=== PATIENT | male | born 1975 | race American Indian/Alaskan Native ===

== ENCOUNTER 2016-03-29 11:59 | Emergency (ER) | payer MEDICARE ==
[2016-03-29 13:40] VITALS: BP 149/104
--- NOTE | 2016-03-29 16:46 | Emergency Department Report ---
ED ENT HPI - General Chief complaint: Skin/Abscess/Foreign Body Stated complaint: LEFT EAR AND RECTAL BONE PAIN Time Seen by Provider: 03/29/16 16:32 Source: patient Mode of arrival: Ambulatory Limitations: No Limitations - History of Present Illness Initial comments: 40-year-old male presents with complaint of 2 weeks of right buttock pain feels sharp or swollen walking and squatting. 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 Denies any direct trauma no fever no chills no bladder or bowel incontinence. Denies any paresthesias but does state the pain feels sharp and occasionally radiates down lateral aspect of right leg when he stands for prolonged periods of time. Denies any paralysis symptoms. Also complaining of one-week of irritation and pain to left external ear. Denies any recent piercing was no recent trauma. - Related Data Previous Rx's Medication Instructions Recorded Last Taken Type Ibuprofen [Motrin] 800 mg PO TID PRN #30 tablet 12/19/12 Unknown Rx Amoxicillin [Trimox CAP] 500 mg PO BID #20 capsule 08/27/14 Unknown Rx Fluticasone [Flonase] 1 spray NS QDAY #1 bottle 08/27/14 Unknown Rx Ibuprofen [Motrin 800 MG tab] 800 mg PO Q8HR PRN #30 tablet 08/27/14 Unknown Rx guaiFENesin DM [Robitussin Dm] 10 ml PO Q6HR #1 bottle 08/27/14 Unknown Rx Acetaminophen/Codeine [Tylenol #3] 1 tab PO Q6H PRN #20 tab 06/23/15 Unknown Rx Metaxalone [Skelaxin] 800 mg PO TID PRN #15 tablet 06/23/15 Unknown Rx Ciprofloxacin HCl [Ciprofloxacin 500 mg PO Q12H #14 tab 03/29/16 Unknown Rx TAB] Mupirocin [Bactroban 2% CREAM] 1 applicatio TP TID #1 cream 03/29/16 Unknown Rx Naproxen [Naprosyn TAB] 500 mg PO BID PRN #20 tablet 03/29/16 Unknown Rx Allergies Allergy/AdvReac Type Severity Reaction Status Date / Time No Known Allergies Allergy Verified 06/23/15 14:10 ED Dental HPI - General Chief complaint: Skin/Abscess/Foreign Body Stated complaint: LEFT EAR AND RECTAL BONE PAIN Time Seen by Provider: 03/29/16 16:32 Source: patient Mode of arrival: Ambulatory Limitations: No Limitations - Related Data Previous Rx's Medication Instructions Recorded Last Taken Type Ibuprofen [Motrin] 800 mg PO TID PRN #30 tablet 12/19/12 Unknown Rx Amoxicillin [Trimox CAP] 500 mg PO BID #20 capsule 08/27/14 Unknown Rx Fluticasone [Flonase] 1 spray NS QDAY #1 bottle 08/27/14 Unknown Rx Ibuprofen [Motrin 800 MG tab] 800 mg PO Q8HR PRN #30 tablet 08/27/14 Unknown Rx guaiFENesin DM [Robitussin Dm] 10 ml PO Q6HR #1 bottle 08/27/14 Unknown Rx Acetaminophen/Codeine [Tylenol #3] 1 tab PO Q6H PRN #20 tab 06/23/15 Unknown Rx Metaxalone [Skelaxin] 800 mg PO TID PRN #15 tablet 06/23/15 Unknown Rx Ciprofloxacin HCl [Ciprofloxacin 500 mg PO Q12H #14 tab 03/29/16 Unknown Rx TAB] Mupirocin [Bactroban 2% CREAM] 1 applicatio TP TID #1 cream 03/29/16 Unknown Rx Naproxen [Naprosyn TAB] 500 mg PO BID PRN #20 tablet 03/29/16 Unknown Rx Allergies Allergy/AdvReac Type Severity Reaction Status Date / Time No Known Allergies Allergy Verified 06/23/15 14:10 ED Review of Systems ROS: Stated complaint: LEFT EAR AND RECTAL BONE PAIN Other details as noted in HPI ED Past Medical Hx - Surgical History Additional Surgical History: PE tubes. tonsilectomy. surgery to right middle digit - Social History Smoking Status: Current Every Day Smoker Substance Use Type: Alcohol - Medications Home Medications: Home Medications Medication Instructions Recorded Confirmed Last Taken Type Ibuprofen [Motrin] 800 mg PO TID PRN #30 tablet 12/19/12 Unknown Rx Amoxicillin [Trimox CAP] 500 mg PO BID #20 capsule 08/27/14 Unknown Rx Fluticasone [Flonase] 1 spray NS QDAY #1 bottle 08/27/14 Unknown Rx Ibuprofen [Motrin 800 MG tab] 800 mg PO Q8HR PRN #30 tablet 08/27/14 Unknown Rx guaiFENesin DM [Robitussin Dm] 10 ml PO Q6HR #1 bottle 08/27/14 Unknown Rx Acetaminophen/Codeine [Tylenol #3] 1 tab PO Q6H PRN #20 tab 06/23/15 Unknown Rx Metaxalone [Skelaxin] 800 mg PO TID PRN #15 tablet 06/23/15 Unknown Rx Ciprofloxacin HCl [Ciprofloxacin 500 mg PO Q12H #14 tab 03/29/16 Unknown Rx TAB] Mupirocin [Bactroban 2% CREAM] 1 applicatio TP TID #1 cream 03/29/16 Unknown Rx Naproxen [Naprosyn TAB] 500 mg PO BID PRN #20 tablet 03/29/16 Unknown Rx ED Physical Exam - General Limitations: No Limitations General appearance: alert, in no apparent distress - Head Head exam: Present: atraumatic, normocephalic - Eye Eye exam: Present: normal appearance, PERRL, EOMI - ENT ENT exam: Present: mucous membranes moist - Expanded ENT Exam Expanded 1 - Small amount of left-sided tragus inflammation and cellulitis and no palpable fluctuance and no involvement of the inferior canal Mouth exam: Present: normal external inspection Teeth exam: Present: normal inspection Throat exam: Positive: normal inspection - Neck Neck exam: Present: normal inspection - Respiratory Respiratory exam: Present: normal lung sounds bilaterally. Absent: respiratory distress - Cardiovascular Cardiovascular Exam: Present: regular rate, normal rhythm. Absent: systolic murmur, diastolic murmur, rubs, gallop - GI/Abdominal GI/Abdominal exam: Present: soft, normal bowel sounds - Rectal Rectal exam: Present: deferred - Extremities Exam Extremities exam: Present: normal inspection - Back Exam Back exam: Present: normal inspection, full ROM - Neurological Exam Neurological exam: Present: alert, oriented X3, CN II-XII intact, normal gait, other (straight leg raise test positive right side at 45, normal rectal tone) - Psychiatric Psychiatric exam: Present: normal affect, normal mood - Skin Skin exam: Present: warm, dry, intact, normal color. Absent: rash ED Course Vital Signs 03/29/16 13:36 Temperature 98.3 F Pulse Rate 90 Respiratory 16 Rate Blood Pressure 149/104 O2 Sat by Pulse 97 Oximetry ED Medical Decision Making - Medical Decision Making A/P: Sciatica/piriformis syndrome, external otitis/tragus infection left ear 1-clinical symptoms patient is reporting pain in his right buttock worse with walking consistent with sciatica or piriformis syndrome no signs of infection or direct trauma no buttock abscess. 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 Naproxen 500 mg when necessary 2- patient has slight external infection of left tragus as per up-to-date recommendations will treat empirically with PO ciprofloxacin and topical mupirocin [email or web address]=search_ result&search=otitis%20externa&[email or web address]~81#[id number] http://www.aafp.org/afp/2011/1201/p1055.html 3-will give patient primary care referral. I advised patient to return to the ED if external ear infection worsens if he develops any pain in her ear or any pus drainage from ear Critical care attestation.: If time is entered above; I have spent that time in minutes in the direct care of this critically ill patient, excluding procedure time. ED Disposition Clinical Impression: Sciatica of right side, Cellulitis of tragus of left ear Disposition: DISCHARGED TO HOME OR SELFCARE Is pt being admited?: No Does the pt Need Aspirin: No Condition: Stable Instructions: Sciatica (ED), Cellulitis (ED) Prescriptions: Ciprofloxacin HCl [Ciprofloxacin TAB] 500 mg PO Q12H #14 tab Mupirocin [Bactroban 2% CREAM] 1 applicatio TP TID #1 cream Naproxen [Naprosyn TAB] 500 mg PO BID PRN #20 tablet PRN Reason: Pain Referrals: PRIMARY CAREMD [Primary Care Provider] - 3-5 Days WENDI MCKAY MD [Staff Physician] - 3-5 Days [facility] [Outside] - 3-5 Days Forms: Work/School Release Form(ED) Time of Disposition: 16:47
== END 2016-03-29 17:05 | disposition home or self-care (01) ==
LOC: ED 11:59
DX: H60.12 Cellulitis of left external ear (principal); M54.31 Sciatica, right side; F17.200 Nicotine dependence, unspecified, uncomplicated; Z90.89 Acquired absence of other organs
CPT/HCPCS: 99282

== ENCOUNTER 2016-08-23 10:21 | Emergency (ER) | payer MEDICAID, MEDICARE ==
[2016-08-23 10:45] VITALS: BP 134/93
[2016-08-23] MEDS ORDERED: BOOSTRIX IM ONE (13:09)
[2016-08-23] MEDS ORDERED: AUGMENTIN 875 MG PO ONE (13:09)
[2016-08-23] MEDS ORDERED: MOTRIN PO ONE (13:09)
--- NOTE | 2016-08-23 14:07 | XRay Report ---
Left tibia-fibula 2 views: History: Dogbite. Findings: No bony abnormality. No fracture dislocation or lytic lesion. No soft tissue calcification Impression: No evidence of acute fracture.
[2016-08-23] MEDS ORDERED: TRIPLE ANTIBIOTIC TP ONE (14:18)
--- NOTE | 2016-08-23 14:24 | Emergency Department Report ---
Entered by JEIMY ALEGRIA, acting as scribe for ERIKA MILLRE NP. ED Animal Bite HPI - General Chief Complaint: Animal Bite Stated Complaint: DOG BITE Time Seen by Provider: 08/23/16 12:58 Source: patient Mode of arrival: Ambulatory Limitations: No Limitations - History of Present Illness Initial Comments: 40 year old male with no significant PMHx presents to the ED with c/o a dog bite that occurred yesterday around 1999. PT states he was working in his cousin's yard, in [place]. Patient reports he was picking up trash around the dog house and the dog struck him. He is unaware on the breed of the dog but he recalls it to be a black dog. Patient rates his pain 5/10 severity and describes as throbbing. Patient reports mild pain while ambulating but denies fever, chills, SOB, chest pain, numbness, and tingling. Patient states the dog is UTD with shots but unsure if he is UTD with tetanus. Pt's states his cousin's cleaned the bite with alcohol and then wrapped the bite. PT also reports ant bites to lavell MARIE Complaint: animal bite (dog bite) Onset/Timin (around 1999) -: days(s) Location: other (left lower extremity) Left: Leg (Lower extremity) Animal: dog (black dog) Animal Control Notified: No Description: household pet (Cousin's dog) Mechanism: bite Pain Description: other (throbbing) Severity scale (0 -10): 5 Context: unprovoked (picking up trash around the dog house) Associated Symptoms: bleeding. denies: erythema, discharge from wound, fever, chills, rash, loss of consciousness, cough, headache, diaphoresis, shortness of breath Treatments Prior to Arrival: other (wrapped up towel) - Related Data Patient Tetanus UTD: No (Doesn't recall) Previous Rx's Medication Instructions Recorded Last Taken Type Amoxicillin/K Clav Tab [Augmentin 1 tab PO Q12HR #14 tab 08/23/16 Unknown Rx 875 mg] Hydrocortisone 1% [Hydrocortisone 1 applicatio TP TID PRN #1 tube 08/23/16 Unknown Rx 1% CREAM] Ibuprofen [Motrin] 600 mg PO Q8H PRN #15 tablet 08/23/16 Unknown Rx Mupirocin [Bactroban 2%] 1 applic TP TID 5 Days 08/23/16 Unknown Rx Allergies Allergy/AdvReac Type Severity Reaction Status Date / Time No Known Allergies Allergy Verified 06/23/15 14:10 ED Review of Systems Comment: All other systems reviewed and negative Constitutional: denies: chills, fever ENT: denies: ear pain, throat pain Respiratory: denies: cough, shortness of breath, wheezing Cardiovascular: denies: chest pain, palpitations Gastrointestinal: denies: abdominal pain, nausea, diarrhea Skin: rash (ant bites to bue ), other (three puncture wound to LLE ). denies: lesions Neurological: denies: headache, weakness, paresthesias, abnormal gait ED Past Medical Hx - Past Medical History Previous Medical History?: No - Surgical History Past Surgical History?: Yes Additional Surgical History: PE tubes. tonsilectomy. surgery to right middle digit - Social History Smoking Status: Current Every Day Smoker Substance Use Type: Alcohol - Medications Home Medications: Home Medications Medication Instructions Recorded Confirmed Last Taken Type Amoxicillin/K Clav Tab [Augmentin 1 tab PO Q12HR #14 tab 08/23/16 Unknown Rx 875 mg] Hydrocortisone 1% [Hydrocortisone 1 applicatio TP TID PRN #1 tube 08/23/16 Unknown Rx 1% CREAM] Ibuprofen [Motrin] 600 mg PO Q8H PRN #15 tablet 08/23/16 Unknown Rx Mupirocin [Bactroban 2%] 1 applic TP TID 5 Days 08/23/16 Unknown Rx ED Physical Exam - General Limitations: No Limitations General appearance: alert, in no apparent distress - Head Head exam: Present: atraumatic, normocephalic - Eye Eye exam: Present: normal appearance, PERRL, EOMI. Absent: conjunctival injection - ENT ENT exam: Present: mucous membranes moist - Expanded ENT Exam Expanded Ear exam: Present: other (abrasion to R ear canal, abrasion to L tragus) TM/Canal exam: Loss of Landmarks: Right TM Mouth exam: Present: normal external inspection. Absent: drooling, trismus - Neck Neck exam: Present: normal inspection, full ROM - Respiratory Respiratory exam: Present: normal lung sounds bilaterally. Absent: respiratory distress, chest wall tenderness - Cardiovascular Cardiovascular Exam: Present: regular rate, normal rhythm, normal heart sounds - GI/Abdominal GI/Abdominal exam: Present: soft. Absent: tenderness - Extremities Exam Extremities exam: Present: full ROM, tenderness. Absent: pedal edema, joint swelling, calf tenderness - Expanded Lower Extremity Exam Left Knee exam: Present: normal inspection, full ROM. Absent: tenderness Lower Leg exam: Present: tenderness, swelling (trace swelling noed ). Absent: normal inspection (3 puncture wounds to lle, no drainage, no active bleeding ), ecchymosis, erythema (no warmth) Ankle exam: Present: normal inspection, full ROM. Absent: tenderness, swelling Foot/Toe exam: Present: normal inspection, full ROM. Absent: tenderness, subungual hematoma Neuro vascular tendon exam: Present: no vascular compromise Gait: Positive: observed and normal - Back Exam Back exam: Present: normal inspection, full ROM. Absent: tenderness, CVA tenderness (R), CVA tenderness (L) - Neurological Exam Neurological exam: Present: alert, oriented X3, normal gait - Psychiatric Psychiatric exam: Present: normal affect, normal mood - Skin Skin exam: Present: warm, dry, normal color, other (bug bites to bue ). Absent : intact, erythema ED Course Vital Signs 08/23/16 10:40 Temperature 98.0 F Pulse Rate 103 H Respiratory 18 Rate Blood Pressure 134/93 O2 Sat by Pulse 96 Oximetry - Reevaluation(s) Reevaluation #1: 08/23/16 14:14 PT's TD vaccine has been updated. PT states the dog has been vaccinated against Rabies. [employer] has been notified of bite. - Pulse Oximetry Interpretation Digit-Finger Initial Pulse Oximetry Readin Actions Taken: none Critical Care Time: No ED Disposition Clinical Impression: Need for Tdap vaccination Dog bite of left lower leg Qualifiers: Encounter type: initial encounter Qualified Code(s): S81.852A - Open bite, left lower leg, initial encounter Insect bite Qualifiers: Encounter type: initial encounter Qualified Code(s): W57.XXXA - Bitten or stung by nonvenomous insect and other nonvenomous arthropods, initial encounter Abrasion of left pinna Qualifiers: Encounter type: initial encounter Qualified Code(s): S00.412A - Abrasion of left ear, initial encounter Disposition: DC-01 TO HOME OR SELFCARE Is pt being admited?: No Does the pt Need Aspirin: No Condition: Stable Instructions: Animal Bite (ED) Additional Instructions: Return to the ED if your leg swells, turns red, has drainage, or you develop a fever or if it becomes more painful follow up with animal control Do not scratch your bug bites finish all antibiotics do not scratch your ear canals with your finger Follow up with PCP in 3-5 days and have your BP rechecked at your follow up Prescriptions: Amoxicillin/K Clav Tab [Augmentin 875 mg] 1 tab PO Q12HR #14 tab Hydrocortisone 1% [Hydrocortisone 1% CREAM] 1 applicatio TP TID PRN #1 tube PRN Reason: Itching Ibuprofen [Motrin] 600 mg PO Q8H PRN #15 tablet PRN Reason: Pain Mupirocin [Bactroban 2%] 1 applic TP TID 5 Days Referrals: [facility] [Outside] - 3-5 Days NILAM MURRAY MD [Referring] - 3-5 Days PRIMARY CAREMD [Primary Care Provider] - 3-5 Days Forms: Work/School Release Form(ED) Time of Disposition: 14:20 This documentation as recorded by the RAJI hernandez PEARL,accurately reflects the service I personally performed and the decisions made by ,ERIKA MILLER NP.
== END 2016-08-23 14:43 | disposition home or self-care (01) ==
LOC: ED 10:21
DX: S81.852A Open bite, left lower leg, initial encounter (principal); S00.412A Abrasion of left ear, initial encounter; F17.200 Nicotine dependence, unspecified, uncomplicated; W54.0XXA Bitten by dog, initial encounter; Y93.89 Activity, other specified; Y99.8 Other external cause status; Y92.89 Other specified places as the place of occurrence of the external cause
CPT/HCPCS: 90471; 90715; A6250

== ENCOUNTER 2019-07-18 08:51 | Emergency (ER) | payer MEDICARE ==
[2019-07-18 09:50] LABS: Hematocrit 41.2 % (35.5-45.6); Hemoglobin 13.2 gm/dl (11.8-15.2); Mean Corpuscular HGB Conc 32 % (32-34); Mean Corpuscular Volume 89 fl (84-94); Platelet Count 209 K/mm3 (140-440); Red Blood Count 4.63 M/mm3 (3.65-5.03)
[2019-07-18 10:07] LABS: Alanine Aminotransferase 14 units/L (7-56); Albumin 4.2 g/dL (3.9-5); BUN/Creatinine Ratio 10; Blood Urea Nitrogen 9 mg/dL (9-20); Calcium 8.8 mg/dL (8.4-10.2); Hemolysis Index 8
--- NOTE | 2019-07-18 10:48 | Emergency Department Report ---
- General Chief Complaint: GI Bleed Stated Complaint: SPITTING UP BLOOD Time Seen by Provider: 07/18/19 10:31 Source: patient Mode of arrival: Ambulatory Limitations: No Limitations - History of Present Illness Initial Comments: 43-year-old male with history of hypertension presents to ED with an episode of hemoptysis. Patient states on yesterday at around 8 PM, he coughed. Patient states he had blood-streaked sputum. Patient states he coughed right after that and brought up clear sputum. Patient states this was his only episode of coughing. States he has not had any coughing today, did not have any coughing the day prior. Patient denies fever, sore throat, body aches, shortness of breath, leg pain or swelling, vomiting or diarrhea, loss of smell or taste, or known exposure to anyone who has tested positive for COVID-19. Patient admits to tobacco and alcohol use. Patient also concerned about a swelling on his anterior lower right rib cage. Denies pain. MD Complaint: cough -: Last night Severity: mild Consistency: now resolved Improves With: nothing Worsens With: nothing Associated Symptoms: denies: fever, chills, myalgias, nasal congestion, sore throat, chest pain, shortness of breath, nausea, vomiting, diarrhea - Related Data Previous Rx's Medication Instructions Recorded Last Taken Type Amoxicillin/K Clav Tab [Augmentin 1 tab PO Q12HR #14 tab 08/23/16 Unknown Rx 875 mg] Hydrocortisone 1% [Hydrocortisone 1 applicatio TP TID PRN #1 tube 08/23/16 Unknown Rx 1% CREAM] Ibuprofen [Motrin] 600 mg PO Q8H PRN #15 tablet 08/23/16 Unknown Rx Mupirocin [Bactroban 2%] 1 applic TP TID 5 Days tube 08/23/16 Unknown Rx hydroCHLOROthiazide [HCTZ] 25 mg PO QDAY #30 tablet 07/18/19 Unknown Rx Allergies Allergy/AdvReac Type Severity Reaction Status Date / Time No Known Allergies Allergy Verified 07/18/19 08:52 ED Review of Systems ROS: Stated complaint: SPITTING UP BLOOD Other details as noted in HPI Comment: All other systems reviewed and negative Constitutional: denies: chills, fever ENT: denies: throat pain, congestion Respiratory: cough. denies: shortness of breath Cardiovascular: denies: chest pain Gastrointestinal: denies: vomiting, diarrhea Musculoskeletal: other (denies leg pain or swelling) ED Past Medical Hx - Past Medical History Previous Medical History?: No - Surgical History Additional Surgical History: PE tubes. tonsilectomy. surgery to right middle digit - Social History Smoking Status: Current Every Day Smoker Substance Use Type: Marijuana - Medications Home Medications: Home Medications Medication Instructions Recorded Confirmed Last Taken Type Amoxicillin/K Clav Tab [Augmentin 1 tab PO Q12HR #14 tab 08/23/16 Unknown Rx 875 mg] Hydrocortisone 1% [Hydrocortisone 1 applicatio TP TID PRN #1 tube 08/23/16 Unknown Rx 1% CREAM] Ibuprofen [Motrin] 600 mg PO Q8H PRN #15 tablet 08/23/16 Unknown Rx Mupirocin [Bactroban 2%] 1 applic TP TID 5 Days tube 08/23/16 Unknown Rx hydroCHLOROthiazide [HCTZ] 25 mg PO QDAY #30 tablet 07/18/19 Unknown Rx ED Physical Exam - General Limitations: No Limitations General appearance: alert, in no apparent distress - Head Head exam: Present: atraumatic, normocephalic - Eye Eye exam: Present: normal appearance, EOMI - ENT ENT exam: Present: mucous membranes moist - Neck Neck exam: Present: normal inspection - Respiratory Respiratory exam: Present: normal lung sounds bilaterally. Absent: respiratory distress - Cardiovascular Cardiovascular Exam: Present: regular rate, normal rhythm - GI/Abdominal GI/Abdominal exam: Present: soft. Absent: distended, tenderness - Extremities Exam Extremities exam: Present: normal inspection. Absent: pedal edema, calf tenderness - Neurological Exam Neurological exam: Present: alert, oriented X3 - Psychiatric Psychiatric exam: Present: normal affect, normal mood - Skin Skin exam: Present: warm, dry, intact, normal color ED Course Vital Signs 07/18/19 07/18/19 07/18/19 08:53 11:10 11:15 Temperature 98.3 F 98 F Pulse Rate 94 H 89 Respiratory 20 18 Rate Blood Pressure 156/110 159/105 Blood Pressure 154/103 [Left] O2 Sat by Pulse 97 98 97 Oximetry 07/18/19 07/18/19 11:20 11:46 Temperature Pulse Rate Respiratory 18 Rate Blood Pressure 150/102 Blood Pressure [Left] O2 Sat by Pulse 98 96 Oximetry ED Medical Decision Making - Lab Data Result diagrams: 07/18/19 09:26 07/18/19 09:24 - Radiology Data Radiology results: report reviewed, image reviewed - Medical Decision Making Pt with isolated episode of hemoptysis on yesterday. CXR normal, labs unremakrable. Pt afebrile. Low suspicion for PE or COVID. Prescription given for antihypertensive. Outpt f/u advised, return precautions given. - Differential Diagnosis pneumonia, lung mass Critical care attestation.: If time is entered above; I have spent that time in minutes in the direct care of this critically ill patient, excluding procedure time. ED Disposition Clinical Impression: Cough, Uncontrolled hypertension Disposition: TO HOME OR SELFCARE Is pt being admited?: No Condition: Stable Instructions: Hypertension (ED) Prescriptions: hydroCHLOROthiazide [HCTZ] 25 mg PO QDAY #30 tablet Referrals: PRIMARY CAREMD [Primary Care Provider] - 3-5 Days BURT LEE MD [Staff Physician] - 3-5 Days ALEM OWENS MD [Staff Physician] - 3-5 Days [facility] [Provider Group] - 3-5 Days Forms: Accompanied Note Time of Disposition: 11:37
--- NOTE | 2019-07-18 11:26 | XRay Report ---
CHEST 2 VIEWS INDICATION / CLINICAL INFORMATION: cough. COMPARISON: 04/28/2011 FINDINGS: SUPPORT DEVICES: None. HEART / MEDIASTINUM: No significant abnormality. LUNGS / PLEURA: No significant pulmonary or pleural abnormality. No pneumothorax. ADDITIONAL FINDINGS: No significant additional findings. IMPRESSION: No significant abnormality or interval change from 04/28/2011 Signer Name: Daniel Jones MD FACR Signed: 07/18/2019 11:22 AM Workstation Name: [id number]
[2019-07-18 11:59] VITALS: BP 150/102
== END 2019-07-18 11:50 | disposition home or self-care (01) ==
LOC: ED 08:51
DX: R05 Cough (principal); I10 Essential (primary) hypertension; F17.200 Nicotine dependence, unspecified, uncomplicated; F12.90 Cannabis use, unspecified, uncomplicated; Z79.899 Other long term (current) drug therapy; Z98.890 Other specified postprocedural states
CPT/HCPCS: 36415; 71046; 80053; 85027

== ENCOUNTER 2020-06-21 18:35 | Emergency (ER) | payer MEDICARE ==
--- NOTE | 2020-06-21 18:41 | Emergency Department Report ---
ED General Adult HPI - General Stated complaint: POSSIBLE BROKE TOE Time Seen by Provider: 06/21/20 18:39 - History of Present Illness Initial comments: 44-year-old male patient presents to emergency department with complaints of traumatic left toe pain starting 3 days ago. Patient states he was ambulating barefoot while intoxicated and accidentally struck his left fourth toe against a wooden door. There was no resulting fall, head injury, or loss of consciousness. Patient has been wearing multiple pairs of tight socks in an attempt to immobilize the toe and reduce his pain. No history of prior injuries to the left foot. Denies hip pain, knee pain, leg pain, ankle pain, paresthesias, numbness. Denies other complaints at this time. - Related Data Previous Rx's Medication Instructions Recorded Last Taken Type Amoxicillin/K Clav Tab [Augmentin 1 tab PO Q12HR #14 tab 08/23/16 Unknown Rx 875 mg] Hydrocortisone 1% [Hydrocortisone 1 applicatio TP TID PRN #1 tube 08/23/16 Unknown Rx 1% CREAM] Ibuprofen [Motrin] 600 mg PO Q8H PRN #15 tablet 08/23/16 Unknown Rx Mupirocin [Bactroban 2%] 1 applic TP TID 5 Days tube 08/23/16 Unknown Rx hydroCHLOROthiazide [HCTZ] 25 mg PO QDAY #30 tablet 07/18/19 Unknown Rx Naproxen 250 mg PO BID #20 tablet 06/21/20 Unknown Rx Allergies Allergy/AdvReac Type Severity Reaction Status Date / Time No Known Allergies Allergy Verified 07/18/19 08:52 ED Review of Systems ROS: Stated complaint: POSSIBLE BROKE TOE Other details as noted in HPI Other: GENERAL: Negative for fever. CARDIOVASCULAR: Negative for chest pain. PULMONARY: Negative for shortness of breath. GASTROINTESTINAL: Negative for abdominal pain. MUSCULOSKELETAL: Positive for toe pain. NEUROLOGICAL: Negative for headache. INTEGUMENTARY: Negative for rash. ED Past Medical Hx - Surgical History Additional Surgical History: PE tubes. tonsilectomy. surgery to right middle digit - Social History Smoking Status: Current Every Day Smoker Substance Use Type: Marijuana - Medications Home Medications: Home Medications Medication Instructions Recorded Confirmed Last Taken Type Amoxicillin/K Clav Tab [Augmentin 1 tab PO Q12HR #14 tab 08/23/16 Unknown Rx 875 mg] Hydrocortisone 1% [Hydrocortisone 1 applicatio TP TID PRN #1 tube 08/23/16 Unknown Rx 1% CREAM] Ibuprofen [Motrin] 600 mg PO Q8H PRN #15 tablet 08/23/16 Unknown Rx Mupirocin [Bactroban 2%] 1 applic TP TID 5 Days tube 08/23/16 Unknown Rx hydroCHLOROthiazide [HCTZ] 25 mg PO QDAY #30 tablet 07/18/19 Unknown Rx Naproxen 250 mg PO BID #20 tablet 06/21/20 Unknown Rx ED Physical Exam - Other Other exam information: General: Awake, appropriately interactive, no acute distress. Neck: Supple. Full range of motion intact. Cardiovascular: Normal peripheral perfusion. Pulmonary: No respiratory distress. Patient is speaking normally without use of accessory muscles. Skin: No apparent rashes or lesions. Neurological: No facial asymmetry. Speech is clear. Follows commands. Patient is alert and oriented. Musculoskeletal: Tenderness to palpation along the dorsal aspect of the left fourth toe with minimal overlying ecchymosis. No obvious deformity or dislocation. No plantar ecchymosis. Ambulatory without assistance. Distal neurovascular and motor/sensory function intact. Psych: Cooperative. Appropriate mood and affect. ED Course Vital Signs 06/21/20 18:41 Temperature 98.4 F Pulse Rate 103 H Respiratory 16 Rate Blood Pressure 182/113 O2 Sat by Pulse 97 Oximetry ED Medical Decision Making - Medical Decision Making Differential diagnosis including but not limited to: sprain, strain, fracture, contusion, dislocation On reevaluation, patient remains stable. Repeat neurovascular exam remains intact. Tachycardia resolved after analgesics. Repeat heart rate 96 bpm. X- rays without acute process. History and exam findings consistent with soft tissue contusion. Patient will be discharged home with appropriate analgesics and referred to primary care provider for close outpatient follow-up. Patient expressed understanding and is agreeable to plan of care. RICE precautions discussed. Strict return precautions provided. Of note, patient's blood pressure was noted to be elevated in the emergency department. Patient has no prior history of hypertension. Specifically denies chest pain, shortness of breath, palpitations, syncope, headache, vision changes. Neurological exam is nonfocal and remainder of vital signs are stable. No clinical indication for further diagnostic work-up and/or initiation of antihypertensive therapy at this time per ACEP asymptomatic hypertension guidelines. Patient was encouraged to follow-up with primary care provider for blood pressure recheck. Lifestyle modifications recommended. As a precaution, the dose of patient's pain medication prescription (short course) was adjusted to account for any possible underlying renal dysfunction. Repeat exam is unremarkable and benign. History, exam, diagnostic testing, and current condition do not suggest worrisome pathology to warrant further testing, continued ED treatment, admission, or surgical evaluation at this point. Given the low probability of a significant medical illness, it would be more likely to result in harm than benefit to perform further testing at this stage. Discussed findings, presumptive diagnosis, need for follow-up and specific signs/symptoms that should prompt immediate return to the emergency department. Instructions were explained in detail to the patient in addition to giving written discharge information. Patient expressed understanding and was given the opportunity to ask questions, all of which were satisfactorily answered prior to discharge home. Critical care attestation.: If time is entered above; I have spent that time in minutes in the direct care of this critically ill patient, excluding procedure time. ED Disposition Clinical Impression: Elevated blood pressure reading Contusion of toe Qualifiers: Encounter type: initial encounter Toe: lesser toe Damage to nail status: without damage Laterality: left Qualified Code(s): S90.122A - Contusion of left lesser toe(s) without damage to nail, initial encounter Disposition: DC- TO HOME OR SELFCARE Is pt being admited?: No Does the pt Need Aspirin: No Condition: Stable Instructions: Contusion, [id number] Additional Instructions: Take Tylenol every 4 hours as needed for pain. Take Naprosyn twice daily with food as needed for pain. Keep left foot elevated as often as possible to reduce swelling. Use candace tape as needed. Apply ice to the affected area as needed to reduce swelling. Follow-up with your primary care provider this week for blood pressure recheck. Call tomorrow to schedule an appointment. Exercise daily. Limit your dietary sodium intake. Return to the emergency department immediately for new or worsening symptoms. Prescriptions: Naproxen 250 mg PO BID #20 tablet Referrals: ALEM OWENS MD [Staff Physician] - 3-5 Days [facility] [Outside] - 3-5 Days [facility] [Outside] - 3-5 Days [facility] [Outside] - 3-5 Days Forms: Work/School Release Form(ED) Time of Disposition: 19:45
[2020-06-21 18:44] VITALS: BP 182/113
[2020-06-21] MEDS ORDERED: IBUPROFEN 600 MG TAB PO ONE (18:59)
[2020-06-21] MEDS ORDERED: ACETAMINOPHEN 500 MG TAB PO ONE (18:59)
--- NOTE | 2020-06-21 19:21 | XRay Report ---
XR toe(s) 2+V LT INDICATION / CLINICAL INFORMATION: trauma/Lt 4th toe. COMPARISON: None available. FINDINGS: BONES/JOINT(S): No acute fracture or subluxation. No significant degenerative changes. SOFT TISSUES: No significant abnormality. ADDITIONAL FINDINGS: None. Signer Name: Chai Colmenares MD Signed: 06/21/2020 7:17 PM Workstation Name: [id number]
== END 2020-06-21 20:08 | disposition home or self-care (01) ==
LOC: ED 18:35
DX: S90.122A Contusion of left lesser toe(s) without damage to nail, initial encounter (principal); R03.0 Elevated blood-pressure reading, without diagnosis of hypertension; F17.200 Nicotine dependence, unspecified, uncomplicated; F12.10 Cannabis abuse, uncomplicated; Z79.899 Other long term (current) drug therapy; W22.8XXA Striking against or struck by other objects, initial encounter; Y93.89 Activity, other specified; Y92.89 Other specified places as the place of occurrence of the external cause; Y99.8 Other external cause status
CPT/HCPCS: 99283

== ENCOUNTER 2021-03-08 13:04 | Emergency (ER) | payer MEDICARE ==
[2021-03-08 15:31] VITALS: BP 160/111
--- NOTE | 2021-03-08 18:00 | Emergency Department Report ---
ED Extremity Problem HPI - General Chief complaint: Extremity Problem,Nontraumatic Stated complaint: LFT ARM PAIN 1-2 WKS Time Seen by Provider: 03/08/21 17:34 Source: patient Mode of arrival: Ambulatory Limitations: No Limitations - History of Present Illness Initial comments: Patient is a 45-year-old male presents emergency with complaints of left upper arm pain for approximately a week. He states he is also noticed swelling to the arm. He denies any fall, injury, trauma. He denies any fever or chills. He states he has had some pain in this arm in the past but it has never become swollen. He has a past medical history of hypertension. No allergies to medications. - Related Data Previous Rx's Medication Instructions Recorded Last Taken Type Amoxicillin/K Clav Tab [Augmentin 1 tab PO Q12HR #14 tab 08/23/16 Unknown Rx 875 mg] Hydrocortisone 1% [Hydrocortisone 1 applicatio TP TID PRN #1 tube 08/23/16 Unknown Rx 1% CREAM] Ibuprofen [Motrin] 600 mg PO Q8H PRN #15 tablet 08/23/16 Unknown Rx Mupirocin [Bactroban 2%] 1 applic TP TID 5 Days tube 08/23/16 Unknown Rx hydroCHLOROthiazide [HCTZ] 25 mg PO QDAY #30 tablet 07/18/19 Unknown Rx Naproxen 250 mg PO BID #20 tablet 06/21/20 Unknown Rx Indomethacin [Indocin] 25 mg PO Q8H #21 cap 03/08/21 Unknown Rx Prednisone [predniSONE 10 mg 10 mg PO .TAPER #1 03/08/21 Unknown Rx (6-Day Pack, 21 Tabs)] amLODIPine 5 mg PO DAILY #30 tab 03/08/21 Unknown Rx Allergies Allergy/AdvReac Type Severity Reaction Status Date / Time No Known Allergies Allergy Verified 07/18/19 08:52 ED Review of Systems ROS: Stated complaint: LFT ARM PAIN 1-2 WKS Other details as noted in HPI Comment: All other systems reviewed and negative ED Past Medical Hx - Past Medical History Previous Medical History?: Yes Hx Hypertension: Yes (no meds) - Surgical History Past Surgical History?: Yes Additional Surgical History: PE tubes. tonsilectomy. surgery to right middle digit - Social History Smoking Status: Current Every Day Smoker Substance Use Type: Marijuana - Medications Home Medications: Home Medications Medication Instructions Recorded Confirmed Last Taken Type Amoxicillin/K Clav Tab [Augmentin 1 tab PO Q12HR #14 tab 08/23/16 Unknown Rx 875 mg] Hydrocortisone 1% [Hydrocortisone 1 applicatio TP TID PRN #1 tube 08/23/16 Unknown Rx 1% CREAM] Ibuprofen [Motrin] 600 mg PO Q8H PRN #15 tablet 08/23/16 Unknown Rx Mupirocin [Bactroban 2%] 1 applic TP TID 5 Days tube 08/23/16 Unknown Rx hydroCHLOROthiazide [HCTZ] 25 mg PO QDAY #30 tablet 07/18/19 Unknown Rx Naproxen 250 mg PO BID #20 tablet 06/21/20 Unknown Rx Indomethacin [Indocin] 25 mg PO Q8H #21 cap 03/08/21 Unknown Rx Prednisone [predniSONE 10 mg 10 mg PO .TAPER #1 03/08/21 Unknown Rx (6-Day Pack, 21 Tabs)] amLODIPine 5 mg PO DAILY #30 tab 03/08/21 Unknown Rx ED Physical Exam - General Limitations: No Limitations General appearance: alert, in no apparent distress - Head Head exam: Present: atraumatic, normocephalic - Eye Eye exam: Present: normal appearance - ENT ENT exam: Present: mucous membranes moist - Extremities Exam Extremities exam: Present: other (ttp to the left shoulder and left elbow, there is edema present to the left upper arm near the elbow, no erythema or skin changes, decreased ROM secondary to pain, neurovascularly intact ) - Neurological Exam Neurological exam: Present: alert, oriented X3 - Psychiatric Psychiatric exam: Present: normal affect, normal mood - Skin Skin exam: Present: warm, dry, intact ED Course Vital Signs 03/08/21 15:29 Temperature 98.5 F Pulse Rate 103 H Respiratory 16 Rate Blood Pressure 160/111 [Left] O2 Sat by Pulse 97 Oximetry ED Medical Decision Making - Lab Data Result diagrams: 03/08/21 17:51 03/08/21 17:51 Lab Results 03/08/21 03/08/21 03/08/21 Range/Units 17:51 17:51 17:51 WBC 4.6 (4.5-11.0) K/mm3 RBC 4.74 (3.65-5.03) M/mm3 Hgb 13.3 (11.8-15.2) gm/dl Hct 43.4 (35.5-45.6) % MCV 92 (84-94) fl MCH 28 (28-32) pg MCHC 31 L (32-34) % RDW 13.6 (13.2-15.2) % Plt Count 250 (140-440) K/mm3 Lymph % (Auto) 35.5 H (13.4-35.0) % [place] % (Auto) 5.6 (0.0-7.3) % Eos % (Auto) 4.4 H (0.0-4.3) % Baso % (Auto) 1.3 (0.0-1.8) % Lymph # (Auto) 1.6 (1.2-5.4) K/mm3 [place] # (Auto) 0.3 (0.0-0.8) K/mm3 Eos # (Auto) 0.2 (0.0-0.4) K/mm3 Baso # (Auto) 0.1 (0.0-0.1) K/mm3 Seg Neutrophils % 53.2 (40.0-70.0) % Seg Neutrophils # 2.5 (1.8-7.7) K/mm3 PT 13.8 (12.2-14.9) Sec. INR 0.96 (0.87-1.13) APTT 30.4 (24.2-36.6) Sec. Sodium 142 (137-145) mmol/L Potassium 3.8 (3.6-5.0) mmol/L Chloride 104.3 (98-107) mmol/L Carbon Dioxide 26 (22-30) mmol/L Anion Gap 16 mmol/L BUN 10 (9-20) mg/dL Creatinine 1.0 (0.8-1.3) mg/dL Estimated GFR > 60 ml/min BUN/Creatinine Ratio 10 % Glucose 115 H (75-100) mg/dL Uric Acid 4.7 (3.5-7.6) mg/dL Calcium 9.0 (8.4-10.2) mg/dL Total Bilirubin 0.60 (0.1-1.2) mg/dL AST 15 (5-40) units/L ALT 13 (7-56) units/L Alkaline Phosphatase 86 (35-129) units/L C-Reactive Protein 0.20 (0.00-1.30) mg/dL Total Protein 7.4 (6.3-8.2) g/dL Albumin 4.5 (3.9-5) g/dL Albumin/Globulin Ratio 1.6 % - Radiology Data Radiology results: report reviewed Ordering Physician: SEVERO VARGAS Date of Service: 03/08/21 Procedure(s): VL venous duplex UE LT Accession Number(s): [id number] cc: SEVERO VARGAS DUPLEX DOPPLER UPPER EXTREMITY VENOUS, LEFT INDICATION / CLINICAL INFORMATION: left arm swelling, pain. TECHNIQUE: Duplex doppler imaging was performed through the veins of the left upper extremity using venous compression and other maneuvers. COMPARISON: None available. FINDINGS: LEFT INTERNAL JUGULAR VEIN: Negative. LEFT SUBCLAVIAN VEIN: Negative. LEFT AXILLARY VEIN: Negative. LEFT BRACHIAL VEIN: Negative. LEFT FOREARM VEINS: Negative. LEFT BASILIC VEIN (SUPERFICIAL): Negative. ADDITIONAL FINDINGS: None. IMPRESSION: 1. No sonographic evidence for DVT. Signer Name: Jeevan Harmon MD Signed: 03/08/2021 6:26 PM Workstation Name: [id number] Transcribed By: Dictated By: Jeevan Harmon MD Electronically Authenticated By: Jeevan Harmon MD Signed Date/Time: 03/08/211825 DD/ 25 TD/TT: Ordering Physician: SEVERO VARGAS Date of Service: 03/08/21 Procedure(s): XR shoulder 2+V LT Accession Number(s): [id number] cc: SEVERO VARGAS Fluoro Time In Minutes: LEFT SHOULDER 3 VIEW(S) INDICATION / CLINICAL INFORMATION: left shoulder/elbow pain/swelling COMPARISON: None available. FINDINGS: BONES / JOINT(S): No acute fracture or subluxation. No significant arthritis. SOFT TISSUES: No significant abnormality. ADDITIONAL FINDINGS: None. Signer Name: Jeevan Harmon MD Signed: 03/08/2021 6:52 PM Workstation Name: [id number] Transcribed By: Dictated By: Jeevan Harmon MD Electronically Authenticated By: Jeevan Harmon MD Signed Date/Time: 03/08/211851 DD/ 50 TD/TT: Ordering Physician: SEVERO VARGAS Date of Service: 03/08/21 Procedure(s): XR elbow 3+V LT Accession Number(s): [id number] cc: SEVERO VARGAS Fluoro Time In Minutes: LEFT ELBOW 3 VIEW(S) INDICATION / CLINICAL INFORMATION: left shoulder/elbow pain/swelling COMPARISON: None available. FINDINGS: BONES / JOINT(S): No acute fracture or subluxation. No significant arthritis. SOFT TISSUES: Subcutaneous edema is noted medially. ADDITIONAL FINDINGS: None. Signer Name: Jeevan Harmon MD Signed: 03/08/2021 6:51 PM Workstation Name: [id number] Transcribed By: SS Dictated By: Jeevan Harmon MD Electronically Authenticated By: Jeevan Harmon MD Signed Date/Time: 03/08/211850 DD/ 49 TD/TT: - Medical Decision Making Patient is a 45-year-old male presents emergency with complaints of left upper arm pain for approximately a week. He states he is also noticed swelling to the arm. He denies any fall, injury, trauma. He denies any fever or chills. He states he has had some pain in this arm in the past but it has never become swollen. He has a past medical history of hypertension. No allergies to medications. Patient states he is not taking his blood pressure medication is not sure what he takes. On exam:ttp to the left shoulder and left elbow, there is edema present to the left upper arm near the elbow, no erythema or skin changes, decreased ROM secondary to pain, neurovascularly intact. US LUE: 1. No sonographic evidence for DVT. XR left shoulder: BONES / JOINT(S): No acute fracture or subluxation. No significant arthritis. SOFT TISSUES: No significant abnormality. ADDITIONAL FINDINGS: None. XR left elbow: BONES / JOINT(S): No acute fracture or subluxation. No significant arthritis. SOFT TISSUES: Subcutaneous edema is noted medially. ADDITIONAL FINDINGS: None. Labs are normal. No leukocytosis, normal CRP. No clinical signs of septic joint or cellulitis. Symptoms could be due to inflammatory arthritis versus gout. Patient given p.o. pain medication on the emergency department, offered patient IM Toradol and he declined getting an injection. Discussed the importance of outpatient follow-up. Discussed return precautions. Advised patient Please take medication as prescribed. Follow-up with your primary care doctor. Follow-up with orthopedic doctor. Return to emergency room for any new or worsening symptoms. Critical care attestation.: If time is entered above; I have spent that time in minutes in the direct care of this critically ill patient, excluding procedure time. ED Disposition Clinical Impression: Left elbow pain, Left arm swelling, Uncontrolled hypertension Left shoulder pain Qualifiers: Chronicity: acute Qualified Code(s): M25.512 - Pain in left shoulder Disposition: HOME / SELF CARE / HOMELESS Is pt being admited?: No Does the pt Need Aspirin: No Condition: Stable Instructions: Hypertension, Adult, Hypertension (ED) Additional Instructions: Please take medication as prescribed. Follow-up with your primary care doctor. Follow-up with orthopedic doctor. Return to emergency room for any new or worsening symptoms. Prescriptions: amLODIPine 5 mg PO DAILY #30 tab Indomethacin [Indocin] 25 mg PO Q8H #21 cap Prednisone [predniSONE 10 mg (6-Day Pack, 21 Tabs)] 10 mg PO .TAPER #1 Referrals: ALEM OWENS MD [Staff Physician] - 3-5 Days [facility] [Provider Group] - 3-5 Days ALFREDITO GROVES MD [Staff Physician] - 3-5 Days Forms: Work/School Release Form(ED) Time of Disposition: 19:59 Print Language: SENEGALESE
[2021-03-08 18:19] LABS: Basophils # (Auto) 0.1 K/mm3 (0.0-0.1); Basophils % (Auto) 1.3 % (0.0-1.8); Eosinophils # (Auto) 0.2 K/mm3 (0.0-0.4); Eosinophils % (Auto) 4.4 % (0.0-4.3); Lymphocytes # (Auto) 1.6 K/mm3 (1.2-5.4); Lymphocytes % (Auto) 35.5 % (13.4-35.0); Mean Corpuscular HGB Conc 31 % (32-34); Mean Corpuscular Volume 92 fl (84-94); Monocytes # (Auto) 0.3 K/mm3 (0.0-0.8); Monocytes % (Auto) 5.6 % (0.0-7.3); Platelet Count 250 K/mm3 (140-440); Red Blood Count 4.74 M/mm3 (3.65-5.03); Red Cell Distribution Width 13.6 % (13.2-15.2)
[2021-03-08 18:20] LABS: INR 0.96 (0.87-1.13)
[2021-03-08 18:21] LABS: Partial Thromboplastin Time 30.4 Sec. (24.2-36.6)
[2021-03-08 18:22] LABS: Hematocrit 43.4 % (35.5-45.6); Hemoglobin 13.3 gm/dl (11.8-15.2)
--- NOTE | 2021-03-08 18:31 | Vascular Lab Report ---
DUPLEX DOPPLER UPPER EXTREMITY VENOUS, LEFT INDICATION / CLINICAL INFORMATION: left arm swelling, pain. TECHNIQUE: Duplex doppler imaging was performed through the veins of the left upper extremity using v enous compression and other maneuvers. COMPARISON: None available. FINDINGS: LEFT INTERNAL JUGULAR VEIN: Negative. LEFT SUBCLAVIAN VEIN: Negative. LEFT AXILLARY VEIN: Negative. LEFT BRACHIAL VEIN: Negative. LEFT FOREARM VEINS: Negative. LEFT BASILIC VEIN (SUPERFICIAL): Negative. ADDITIONAL FINDINGS: None. IMPRESSION: 1. No sonographic evidence for DVT. Signer Name: Jeevan Harmon MD Signed: 03/08/2021 6:26 PM Workstation Name: [id number]
[2021-03-08 18:33] LABS: Alanine Aminotransferase 13 units/L (7-56); Albumin 4.5 g/dL (3.9-5); BUN/Creatinine Ratio 10; Blood Urea Nitrogen 10 mg/dL (9-20); Hemolysis Index 9; Uric Acid 4.7 mg/dL (3.5-7.6)
--- NOTE | 2021-03-08 18:55 | XRay Report ---
LEFT ELBOW 3 VIEW(S) INDICATION / CLINICAL INFORMATION: left shoulder/elbow pain/swelling COMPARISON: None available. FINDINGS: BONES / JOINT(S): No acute fracture or subluxation. No significant arthritis. SOFT TISSUES: Subcutaneous edema is noted medially. ADDITIONAL FINDINGS: None. Signer Name: Jeevan Harmon MD Signed: 03/08/2021 6:51 PM Workstation Name: [id number]
--- NOTE | 2021-03-08 18:56 | XRay Report ---
LEFT SHOULDER 3 VIEW(S) INDICATION / CLINICAL INFORMATION: left shoulder/elbow pain/swelling COMPARISON: None available. FINDINGS: BONES / JOINT(S): No acute fracture or subluxation. No significant arthritis. SOFT TISSUES: No significant abnormality. ADDITIONAL FINDINGS: None. Signer Name: Jeevan Harmon MD Signed: 03/08/2021 6:52 PM Workstation Name: [id number]
[2021-03-08] MEDS ORDERED: KETOROLAC 60 MG/2 ML INJ IM ONE (19:02)
[2021-03-08] MEDS ORDERED: HYDROcodone/ACETAMINOPHEN 5-325 MG TAB PO ONE (19:02)
== END 2021-03-08 20:17 | disposition home or self-care (01) ==
LOC: ED 13:04
DX: M25.522 Pain in left elbow (principal); M25.512 Pain in left shoulder; I10 Essential (primary) hypertension; M79.89 Other specified soft tissue disorders; F17.200 Nicotine dependence, unspecified, uncomplicated; Z79.899 Other long term (current) drug therapy; Z98.890 Other specified postprocedural states
CPT/HCPCS: 36415; 80053; 84550; 85025; 85610; 85730; 86140; 99284